=== PATIENT | female | born 1955 | race American Indian/Alaskan Native ===

== ENCOUNTER 2017-02-07 15:29 | Outpatient (CLI) | payer MEDICAID, OTHER | END 2017-02-07 15:30 | disposition home or self-care (01) | LOC: LABHHL 15:29 | PROVIDERS: ATTEND Surgery | DX: N64.89 Other specified disorders of breast (principal) | CPT/HCPCS: 88112 ==

== ENCOUNTER 2018-08-09 13:33 | Outpatient (CLI) | payer MEDICARE, OTHER | END 2018-08-09 13:34 | disposition home or self-care (01) | LOC: LABHHL 13:33 | PROVIDERS: ATTEND Surgery | DX: R92.0 Mammographic microcalcification found on diagnostic imaging of breast (principal); I10 Essential (primary) hypertension; E66.01 Morbid (severe) obesity due to excess calories; J44.9 Chronic obstructive pulmonary disease, unspecified; K21.9 Gastro-esophageal reflux disease without esophagitis; M19.90 Unspecified osteoarthritis, unspecified site | CPT/HCPCS: 88305 ==

== ENCOUNTER 2021-02-24 08:47 | Outpatient (CLI) | payer MEDICARE ==
--- NOTE | 2021-02-24 10:53 | Mammography Report ---
DIGITAL SCREENING MAMMOGRAM WITH TOMOSYNTHESIS WITH CAD, 02/24/2021 CLINICAL INFORMATION / INDICATION: Routine Screening Mammography. TECHNIQUE: Digital bilateral 2D and 3D mammography with tomosynthesis was obtained in the craniocaud al and mediolateral oblique projections. Computer-Aided Detection (CAD) analysis was used for interp retation of this study. COMPARISON: 04/22/2020, 02/20/2019 FINDINGS: Breast Density: The breasts are heterogeneously dense, which may obscure small masses. No dominant mass, suspicious calcifications, or architectural distortion in either breast. There are stable postoperative changes anteriorly and centrally along the right breast. IMPRESSION: No mammographic evidence of malignancy. Follow up recommendation: Routine yearly BI-RADS Category 2: Benign. A "normal" or negative report should not discourage follow up or biopsy of a clinically significant f inding. A written summary of these findings will be mailed to the patient. The patient will be entered into a mammography reporting system which will generate a reminder letter for the patient's next appointmen t at the appropriate interval. The [employer] recommends yearly mammograms starting at age 40 and continuing as l gama as a woman is in good health. Breast MRI is recommended for women with an approximate 20-25% or greater lifetime risk of breast cancer, including women with a strong family history of breast or ova brad cancer or who have been treated for Hodgkin's disease. Signer Name: Amandeep Hough MD Signed: 02/24/2021 10:48 AM Workstation Name: [id number]
== END 2021-02-24 08:48 | disposition home or self-care (01) ==
LOC: SPVWC 08:47
PROVIDERS: ATTEND Surgery
DX: Z12.31 Encounter for screening mammogram for malignant neoplasm of breast (principal); N64.89 Other specified disorders of breast
CPT/HCPCS: 77063; 77067